=== PATIENT | male | born 1955 | race Caucasian/White ===

== ENCOUNTER 2023-07-10 08:27 | Outpatient (OUT) | payer MEDICARE, SELFPAY ==
[2023-07-10 08:58] LABS: Hemoglobin 17.2 g/dL (14.0-18.0)
--- NOTE | 2023-07-10 09:57 | RT_ITS ---
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 Findings were considered accurate and reproducible. Both pre- and post-bronchodilator values utilized for spirometry. Spirometry (based on pre-bronchodilator values): -FEV1/FVC: Reduced @ 67% -FEV1: Moderately reduced @ 79% -FVC: Normal @ 87% -There is no significant bronchodilator response. Lung volumes by plethysmography (based on post-bronchodilator values): -RV: Increased @ 133% -TLC: Mild-moderately reduced @ 70% Diffusion capacity: -DLCO: Very severe reduction @ 25% when corrected for Hb 17.2g/dL Flow-volume loop: -Moderate obstructive pattern Impressions: -Moderate obstructive pattern on spirometry without a bronchodilator response would be consistent with COPD/emphysema. Concomitant restrictive process with mild-moderate reduction in TLC and a very severe reduction in DLCO which can be seen in, but not restricted to, interstitial lung disease and cardiopulmonary vascular disorders. Secondary polycythemia is suggested given Hb 17.2g/dL. Clinical correlation required. Electronically Signed On 07-11-2023 15:38:42 EST by Puma Pratt
[2023-07-10] MEDS: ALBUTEROL SULFATE 2.5 MG/3 ML VIAL NEB IH (09:59)
--- NOTE | 2023-07-10 10:40 | XR_ITS ---
The [address] [address] Patient Name: JANINE MOORE MRN: [id number] date: 1955 Sex: M Assigned Patient Location: CARD Current Patient Location: CARD Accession/Order Number: [id number] Exam Date: 07/10/2023 10:45 Report Date: 07/10/2023 11:54 At the request of: ASHOK DELGADILLO Procedure: XR chest 2V EXAM: XR chest 2V HISTORY: Panlobular Emphysema J43.1 COMPARISON: None. TECHNIQUE: Upright PA and lateral chest x-ray FINDINGS: Diffuse interstitial changes or infiltrates are seen throughout the lungs, most prominently seen at the lung bases and in the right midlung. Some of these findings may be chronic in nature and related to fibrosis, there is flattening of the hemidiaphragms indicating COPD. No effusion or pneumothorax is identified. The heart is not enlarged and the vasculature is not distended. The osseous structures are grossly intact. XR/XR chest 2V IMPRESSION: Diffuse interstitial changes or infiltrates are seen throughout the lungs. Some of these findings may be chronic in nature and comparison with a previous study may be helpful. There is no evidence of an effusion, pneumothorax or overt cardiac decompensation at this time. Electronically authenticated by: VICKI CERDA Date: 07/10/2023 11:54
== END 2023-07-10 08:28 | disposition home or self-care (01) ==
LOC: CARD 08:33
PROVIDERS: PCP Internal Medicine; Visit Provider Internal Medicine
DX: R06.09 Other forms of dyspnea (principal); J43.1 Panlobular emphysema
CPT/HCPCS: 36415; 71046; 85018; 94060; 94726; 94729

== ENCOUNTER 2023-09-04 02:40 | Emergency (ER) | payer MEDICARE, SELFPAY ==
[2023-09-04] VITALS (40 sets, daily range): BP systolic 99–126; BP diastolic 68–90; PULSE 68–104; TEMP 36.6; O2SAT 40–95; BMI 25.1
--- OUTSIDE RECORDS SUMMARY | 2023-09-04 03:06 | XMS_ITS | CCD ---
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 Name Role Phone Unavailable Primary Care Provider Unavailcece e LYLE CAVAZOS Attending LYLE Falk Attending CR Falk Primary Care Provider CR Cavazos Attending Provider Lyle Cavazos Attending Lyle Falk Primary Care Unavailable Lyle Cavazos Admitting Unavailable Medications Current Medications Medication Drug Class(es) Dates Sig (Normalized) Sig (Original) 120 actuat budesonide 0.16 mg/actuat / formoterol fumarate 0.0048 mg/actuat / glycopyrrolate 0.009 mg/actuat metered dose inhaler (2 sources) Corticosteroid, beta2-Adrenergic Agonist Start: 07-05-2023 End: 07-04-2024 take 2 puff(s) by inhalation in the morning Budeson-Glycopyrr ol-Formoterol ([employer]) 160-9-4.8 MCG/ACT aerosol Indications: Panlobular emphysema (CMS/HCC) Inhale 2 puffs in the morning and 2 puffs before bedtime. 10.7 g 11 07/05/2023 07/04/2024 Active Problems Problem Classification Problem Date Documented Da te Episodic/Chronic Chronic obstructive pulmonary disease and bronchiectasis (3 sources) Panacinar emphysema; Translations: [Panlobular emphysema] Onset: 08-11-2023 07-05-2023 Chronic Other lower respiratory disease (2 sources) Dyspnea on exertion; Translations: [Other forms of dyspnea] 07-05-2023 Episodic Results Test Name Value Interpretation Reference Range Facility CT chest w conon 08-11-2023 CT chest w [facility] [address] [address] [address] Scan Report Signed Patient: Jim Bahena MR#: [id number] : 1955 Acct:[id number] Age/Sex: 68 / M ADM Date: 08/11/23 Loc: CT Room: Type: [facility] Attending Dr: Lyle Cavazos II, MD Copies to: Lyle Cavazos II, MD Ordering Provider: Lyle Cavazos II, MD Date of Service: 08/11/23 CT/CT chest w con: R94.2, J43.[address] Chest with contrast TECHNIQUE: Axial imaging with 2-D reconstruction. 86 cc of Isovue-300The CT exam was performed using one or more the following dose reduction techniques: Automated exposure control, adjustment of the MA and/or Kv according to patient size, or use of the iterative reconstruction technique. History: Difficulty breathing. COMPARISON: None THYROID: Unremarkable TRACHEA AND BRONCHI: Patent ESOPHAGUS: Unremarkable. HEART: Within normal limits PERICARDIAL EFFUSION: None CORONARY ARTERY CALCIFICATION: None MEDIASTINUM: No adenopathy. No pneumoperitoneum. No mediastinal hematoma. PULMONARY LUZ MARIA: No hilar mass or adenopathy is seen. THORACIC AORTA Unremarkable LUNG NODULE None LUNGS: Marked emphysematous and fibrotic changes. Honeycombing in the subpleural regions of the lung bases and also in the LEFT upper lobe and medial anterior portion of the RIGHT upper lobe abutting the minor fissure.. No acute findings. PLEURAL EFFUSION: None PNEUMOTHORAX: No pneumothorax seen. CHEST WALL: No abnormality AXILLA:Unremarkable BONY STRUCTURES Intact UPPER ABDOMEN: Mild prominence of the adrenal glands. CT/CT chest w con IMPRESSION: Pulmonary fibrosis and emphysematous changes. No acute cardiopulmonary disease. Impression dictated by: Michele Lucero M.D.08/11/2023 1:12 PM Dictation Location: [place] [address] Transcribed By: [facility] 08/11/23 1312 Dictated By: Michele Lucero DO 08/11/23 1304 Signed By: 08/11/23 1312 [facility] Creatinine (Bld) [Mass/Vol]O rdered By: Lyle Cavazos on 08-11-2023 Creatinine [Mass/Vol] 1.6 mg/dL 0.6-1.[address] [facility] Comment on above: ER/ESD physician is notified/shown all ISTAT results.Critical values may be confirmed by laboratory testing ifdeemed necessary by ER attending doctor. ISTAT XRay CREon 08-11-2023 Creatinine [Mass/Vol] 1.6 mg/dL High 0.6-1.[address] [facility] Comment on above: Result Comment: ER/E SD physician is notified/shown all ISTAT results. Critical values may be confirmed by laboratory testing if deemed necessary by ER attending doctor. Performed By: #### I SCRE #### [facility] [address] ISTAT GFR 47.225 Normal [facility] Comment on above: Result Comment: PERF ORMED BY: [place] [address] PATHOLOGIST RADIOSONDE OPERATOR ALEX OLIVER M.D. Performed By: #### I SCRE #### [facility] [address] [place] [address] No Panel InformationOrdered By: Lyle Cavazos on 08-11-2023 Bedside Estimated GFR (eGFR) 47.225 [facility] Vital Signs Date Time Vital Sign Value Performing Clinician Faci lity 07-05-2023 14:26-0500 Body height 170.2 cm Lyle Cavazos MD Work Phone: [facility] 07-05-2023 14:26-0500 Body mass index (BMI) [Ratio] 24.43 kg/m2 Lyle Cavazos MD Work Phone: [facility] 07-05-2023 14:26-0500 Body weight 70.76 kg Lyle Cavazos MD Work Phone: [facility] 07-05-2023 14:26-0500 Diastolic blood pressure 80 mm[Hg] Lyle Cavazos MD Work Phone: [facility] 07-05-2023 14:26-0500 Heart rate 62 /min Lyle Cavazos MD Work Phone: [facility] 07-05-2023 14:26-0500 SaO2% (BldA) [Mass fraction] 99 % Lyle Cavazos MD Work Phone: [facility] 07-05-2023 14:26-0500 Systolic blood pressure 134 mm[Hg] Lyle Cavazos MD Work Phone: [facility] Encounters Encounter Date Encounter Type Care Provider Facility Start: 08-11-2023 End: 08-11-2023 ambulatory Lyle Cavazos Facility:[facility] Start: 08-11-2023 End: 08-11-2023 ambulatory II Lyle Dirk Work Phone: [facility] Work Phone: Start: 08-11-2023 End: 08-11-2023 Patient encounter procedure II Lyle Dirk Work Phone: [facility] [place] Work Phone: Start: 08-04-2023 End: 08-04-2023 ambulatory LYLE CAVAZOS Not Available Start: 07-05-2023 End: 07-05-2023 ambulatory LYLE CAVAZOS Not Available Start: 07-05-2023 End: 07-05-2023 Office outpatient new 30 minutes Lyle Cavazos MD Work Phone: [facility] Comment on above: MYLES (dyspnea on exer tion) (Primary Dx); Panlobular emphysema (CMS/HCC) Start: 07-05-2023 Bamboo flowsheet Lyle benavides MD Work Phone: [facility] Start: 07-05-2023 Bamboo flowsheet Lyle benavides MD Work Phone: [facility] Procedures Date Procedure Procedure Detail Performing Clinician Start: 08-11-2023 CT of thorax with contrast II Lyle Cavazos Work Phone: Plan of Treatment Date Care Activity Detail Author Start: 08-04-2023 End: 08-04-2023 Patient encounter procedure 08/04/2023 10:00 AM EDT Office Visit [facility] [address] [place] [id number] Lyle Cavazos MD [address] [place], [place] [id number] [facility] Start: 07-05-2023 End: 07-05-2023 Patient encounter procedure 07/05/2023 2:30 PM EST Office Visit [facility] [address] [facility] [address] [place] [id number] Lyle Cavazos MD [address] [facility] [address] [place] [address] Arrived [facility] Comment on above: Arrived Start: 07-05-2023 End: 07-05-2024 Pulmonary function testing Pulmonary function testing Imaging Routine MYLES (dyspnea on exertion) Panlobular emphysema (CMS/HCC) Expected: 07/05/2023 (Approximate), Expires: 07/05/2024 [facility] Comment on above: Expected: 07/05/2023 (Approximate), Expires: 07/05/2024 Start: 07-05-2023 End: 07-05-2024 XR Chest 2 Views XR chest 2 views Imaging Routine Panlobular emphysema (CMS/HCC) Expected: 07/05/2023, Expires: 07/05/2024 [facility] Work Phone: Comment on above: Expected: 07/05/2023 , Expires: 07/05/2024 Payers Date Payer Category Payer Self-pay 2023 Private Health Insurance [employer] [id number] 2023-Present [address] [address] [place] [address] Supplement [id number] 2023 Private Health Insurance ACC [id number] 2022 Medicare MEDICARE MEDICAR E PART B [id number] 2022-[place] [address] [place] [address] Medicare [id number] 2022 Medicare [id number] 1955 Unknown [id number] 1955 Unknown [id number] Unknown [id number] Social History Date Type Detail Facility Tobacco smoking status IDIS Tobacco smoking consumption unknown [facility] Start: 1955 Sex Assigned At Not on file [facility] Start: 07-05-2023 Gender identity Not on file [facility] Start: 07-05-2023 Tobacco smoking status IDIS Smokes tobacco daily [facility] History of tobacco use Cigarette Smoker [facility] Start: 07-05-2023 Tobacco use and exposure Smokeless tobacco non-user [facility] Start: 07-05-2023 History of Social function [facility] Start: 1955 Sex Assigned At Male F [facility] History of Present illness Narrative 07-05-2023 Lyle Cavazos MD - 07/05/2023 2:30 PM EST Note Date & Type Note Facility 07-05-2023 History of Presen t illness Narrative Subjective Patient ID: Jim Bahena is a 67 y.o. male who presents for Establish Care (Pt has not had a PCP > 10 years) and Shortness of Breath. Subjective Jim Bahena is a 67 y.o. male who presents for evaluation of shortness of breath. Dyspnea has been mild, Episodes have been stable. Associated symptoms include: light-headed/dizzy. The symptoms are aggravated by exercise and exertion, and relieved by rest. Shortness of Breath Associated symptoms include wheezing. Pertinent negatives include no chest pain, fever or leg swelling. No current outpatient medications on file prior to visit. No current facility-administered medications on file prior to visit. No Known Allergies Social History Tobacco Use Smoking status: Every Day Types: Cigarettes Smokeless tobacco: Never Family History Problem Relation Name Age of Onset Heart disease Mother Cancer Mother History reviewed. No pertinent past medical history. Past Surgical History: Procedure Laterality Date APPENDECTOMY TONSILLECTOMY UMBILICAL HERNIA REPAIR Visit Vitals BP 134/80 Pulse 62 Ht 5' 7 Wt 156 lb SpO2 99% BMI 24.43 kg/m Smoking Status Every Day BSA 1.83 m Review of Systems Constitutional: Positive for fatigue. Negative for fever. Respiratory: Positive for shortness of breath and wheezing. Negative for cough and chest tightness. Cardiovascular: Negative for chest pain, palpitations and leg swelling. Objective Physical Exam Constitutional: General: He is not in acute distress. Appearance: He is normal weight. He is not ill-appearing. HENT: Head: Normocephalic. Cardiovascular: Rate and Rhythm: Normal rate and regular rhythm. Heart sounds: Normal heart sounds. No murmur heard. Pulmonary: Effort: Pulmonary effort is normal. Prolonged expiration present. Breath sounds: Decreased air movement present. Examination of the right-upper field reveals decreased breath sounds. Examination of the left-upper field reveals decreased breath sounds. Examination of the right-middle field reveals wheezing. Examination of the left-middle field reveals wheezing. Decreased breath sounds and wheezing present. Musculoskeletal: General: No swelling. Right lower leg: No edema. Left lower leg: No edema. Neurological: Mental Status: He is alert. Psychiatric: Mood and Affect: Mood normal. Assessment/Plan Diagnoses and all orders for this visit: MYLES (dyspnea on exertion) - Pulmonary function testing; Future Panlobular emphysema (CMS/HCC) - XR chest 2 views; Future - Pulmonary function testing; Future - Eyyodpt-Tblxsrletmf-Uphvuhdmpx ([employer]) 160-9-4.8 MCG/ACT aerosol; Inhale 2 puffs in the morning and 2 puffs before bedtime. Follow up in about 3 weeks (around 07/26/2023) for F/U med changes, Test/Lab Review. documented in this encounter [facility] Evaluation note Note Date & Type Note Facility Evaluation note Diagnosis MYLES (dyspnea on exertion)- Primary Other dyspnea and respiratory abnormality Panlobular emphysema (CMS/HCC) Other emphysema documented in this encounter [facility] Evaluation note Note Date & Type Note Facility Evaluation note No assessment information availa [facility] Work Phone: Summary Purpose Family History No Family History Records FoundNo Family History Records Found Advance Directives No Advanced Directives Records Found Advance Directive Response Recorded Date/ Time Advance Directives No August 07, 2 024 5:19pm Chief Complaint and Reason for Visit Chief Complaint j43.1 r94.2 r93.89 Additional Source Comments Reason for Visit (unrecogniz ed section and content) Reason Comments Establish Care Pt has not had a PCP > 10 years Shortness of Breath (unrecognized sect ion and content) No Status Records FoundNo Status Records Found INFORMATION SOURCE (unrecogn ized section and content) DATE CREATED AUTHOR 08/05/2023 [facility] EPIC DATE CREATED AUTHOR AUTHOR'S ORGANIZ ATION 08/16/2023 [facility] Care Teams (unrecognized sec tion and content) Team Status: Active Member Role Status Dates Lyle Cavazos II MD Primary Care Provider Active Team Status: Inactive Member Role Status Dates Lyle Cavazos II MD Primary Care Provid er, Attending Provider Active Start: August 11, 2023 End: August 11, 2023 Goals (unrecognized section and content) Goals may be documented in a n alternate section FOR RECORDS PERTAINING TO PATIENTS WHO ARE OR HAVE BEEN ENROLLED IN A CHEMICAL DEPENDENCY/SUBSTANCEABUSE PROGRAM, SOME INFORMATION MAY BE OMITTED. This clinical summary was aggregated from multiple sources. Caution should be exercised in using it in the provision of clinical care. This summary normalizes information from multiple sources, and as a consequence, information in this document may materially change the coding, format and clinical context of patient data. In addition, data may be omitted in some cases. CLINICAL DECISIONS SHOULD BE BASED ON THE PRIMARY CLINICAL RECORDS. [employer] provides no warranty or guarantee of the accuracy or completeness of information in this document.
--- NOTE | 2023-09-04 03:15 | XR_ITS ---
The [address] [address] Patient Name: JANINE MOORE MRN: [id number] date: 1955 Sex: M Assigned Patient Location: ER Current Patient Location: ED.MAIN Accession/Order Number: [id number] Exam Date: 09/04/2023 03:35 Report Date: 09/04/2023 06:50 At the request of: CARISSA BURRIS Procedure: XR chest 1V EXAM: XR chest 1V HISTORY: SOB COMPARISON: Chest radiographs dated 07/10/2023. Correlation is made with subsequent CT chest examination of the same date. TECHNIQUE: One view of the chest was obtained. FINDINGS: The cardiac silhouette is stable in size. There are emphysematous changes. Chronic interstitial lung changes are most pronounced in the lung bases. There is no significant pneumothorax or pleural effusion. No acute osseous abnormality is seen. XR/XR chest 1V IMPRESSION: 1. Emphysematous and chronic interstitial changes with no acute cardiopulmonary abnormality seen. Electronically authenticated by: Sarina BARBOZA Date: 09/04/2023 06:50
--- NOTE | 2023-09-04 03:17 | ED.GENADUL1 ---
HPI HPI - General Adult General Chief complaint: Syncope Stated complaint: NEAR SYNCOPE Time Seen by Provider: 09/04/23 02:45 Source: patient Mode of arrival: ambulance Limitations: no limitations History of Present Illness HPI narrative: This 68-year-old male who has been smoking cigarettes since he was a child presents for evaluation after he became became dizzy and nearly passed out at work. The patient works at [employer]. 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 The patient works at [address] and he started feeling his vision change then started feeling dizzy and then started feeling like he was going to pass out. He alerted one of his coworkers who called the lead at work and he was made to sit down and EMS was called. He states he did not fully pass out but according to his coworkers he was pale,arias in color and diaphoretic.and diaphoretic. After EMS arrival, he started feeling better and at the time of presentation, he is feeling normal and back to his baseline. He denies any chest pain, does not feel short of breath and has no abdominal pain, nausea or back pain. He did not fall or get injured when he became ill at work. He recently had PFTs done by Dr Pratt but states that he doesnt typically see doctors. He started feeling some upper resp symptoms earlier this evening as well with nasal congestion and phlegm in his throat. Related Data Home Medications ?Medication ?Instructions ?Recorded ?Confirmed No Known Home Medications 09/04/23 09/04/23 Allergies Allergy/AdvReac Type Severity Reaction Status Date / Time No Known Drug Allergies Allergy Verified 09/04/23 02:55 Opioid HPI Opioid Management Most Recent Opioid Data: No Data to Display Review of Systems ROS Status of ROS 10 or more systems reviewed and unremarkable except as noted in history and below Exam Narrative Exam Narrative: Nurses note and vital signs reviewed and patient is not hypoxic. General: The patient appears well and in no apparent distress. Patient is resting comfortably on cart. He is having episodes of sneezing and nasal congestion. Skin: Warm, dry, no pallor noted. There is no rash noted. Head: Normocephalic, atraumatic Eye: Normal conjunctiva, no drainage, EOMI. PERRL. Vision is grossly intact Ears, Nose, Mouth, and Throat: oral mucosa is moist. Nares patent. Nasal congestion. No swelling of the tongue, uvula or pharyngeal soft tissues Cardiovascular: Regular Rate and Rhythm S1S2, pulses are brisk and equal bilaterally, no murmurs, rubs or gallops appreciated Respiratory: Patient is in no distress, no accessory muscle use, lungs are clear to auscultation, no wheezing, rales or rhonchi Back: non-tender, no CVA tenderness bilaterally to percussion. GI: Normal bowel sounds, no tenderness to palpation, no masses appreciated. No rebound, guarding, or rigidity noted. Musculoskeletal: The patient has no evidence of calf tenderness, no pitting edema, symmetrical pulses noted bilaterally Neurological: A&O x4, normal speech, no focal deficits Psychiatric: Cooperative Constitutional Vital Signs, click to edit/add: Last Vital Signs Temp 98 F 09/04/23 02:42 Pulse 87 09/04/23 08:20 Resp 22 H 09/04/23 08:20 BP 126/83 09/04/23 07:30 Pulse Ox 83 L 09/04/23 02:50 O2 Del Method Room Air 09/04/23 02:42 Course Vital Signs Vital signs: Vital Signs Temperature 98 F 09/04/23 02:42 Pulse Rate 92 H 09/04/23 02:42 Respiratory Rate 20 09/04/23 02:42 Blood Pressure 109/71 09/04/23 02:42 Pulse Oximetry 95 09/04/23 02:42 Oxygen Delivery Method Room Air 09/04/23 02:42 Temperature 98 F 09/04/23 02:42 Pulse Rate 87 09/04/23 08:20 Respiratory Rate 22 H 09/04/23 08:20 Blood Pressure 126/83 09/04/23 07:30 Pulse Oximetry 83 L 09/04/23 02:50 Oxygen Delivery Method Room Air 09/04/23 02:42 Medical Decision Making MDM Narrative Medical decision making narrative: This 68-year-old male is brought to the emergency department from work after he had a near syncopal event in which he became lightheaded, short of breath, pale , arias and diaphoretic. He was made to sit down and EMS was called. The patient is a heavy smoker. . He does not typically follow up with a family physician several he does not know if he has any longstanding medical problems. He did recently have pulmonary function test done. He was evaluated immediately upon arrival and an EKG was performed that is a sinus rhythm with sinus rhythm with flipped T waves and nonspecific changes. No prior EKGs were available for comparison. An IV was placed and he was given IV fluids and 324 mg baby aspirin. Upon arrival he had no complaints whatsoever. He denied any chest pain throughout this entire time. He has a normal white count and hemoglobin. Electrolytes are normal although he does have a mildly elevated creatinine at 1.54. D dimer is elevated and Troponin is elevated at 123. Respiratory panel is negative. This was ordered because he started having URI symptoms of nasal congestion, feeling phlegmy in his throat and sneezing. Pt was continually monitored without any arrythmias noted on the monitor. Repeat EKG was ordered and is essentially unchanged. CTA of the chest is pending Repeat troponin is now 422.4. He still remains chest pain free. He was given a 4000unit heparin bolus and started on a heparin drip. CTA of the chest was negative for PE Case was discussed with Dr Torres at [facility] and he is accepted for transfer. Medical Records Medical records reviewed: Yes I reviewed the patient's medical records Medical records narrative: [place] [address] CT Scan Report Signed Patient: JANINE MOORE MR#: [id number] : 1955 Acct:[id number] Age/Sex: 68 / M ADM Date: 09/04/23 Loc: ER Attending Dr: Ordering Physician: Sola Choudhury Date of Service: 09/04/23 Procedure(s): CT angio chest Accession Number(s): [id number] cc: ASHOK DELGADILLO ~ The [place] [id number] Patient Name: JANINE MOORE MRN: [id number] date: 1955 Sex: M Assigned Patient Location: ER Current Patient Location: ER Accession/Order Number: [id number] Exam Date: 09/04/2023 04:34 Report Date: 09/04/2023 07:18 At the request of: SOLA CHOUDHURY Procedure: CT angio chest EXAM: CT angio chest HISTORY: R/o PE shortness of breath. COMPARISON: None. TECHNIQUE: Following intravenous administration of 100 cc of Omnipaque 50, axial soft tissue windows of the chest were performed with coronal and sagittal reformats. 3-D MIPS reconstructions were created and reviewed. CT dose reduction technique was used including Automated Exposure Control. Findings: The heart is not significantly enlarged. There are coronary artery and aortic annular and valvular calcifications. No pericardial effusion. The thoracic aorta is normal caliber. Mild atherosclerotic disease. There is adequate opacification of the pulmonary arteries. No evidence of pulmonary embolism. The central airways are patent. Severe emphysema. There is also septal thickening with bilateral honeycombing likely relating to interstitial lung disease. No pneumothorax. No pleural effusion. No focal consolidation. No enlarged mediastinal, hilar, axillary or supraclavicular lymph nodes. No aggressive's carotic or lytic osseous lesions. Mild multilevel degenerative thoracic spondylosis. CT/CT angio chest IMPRESSION: 1. No pulmonary embolism. 2. Severe emphysema. 3. Bilateral septal thickening with honeycombing likely relating interstitial lung disease such as usual interstitial pneumonitis. Electronically authenticated by: GLORIA CHIANG Date: 09/04/2023 07:18 Lab Data Lab results reviewed: Yes I reviewed the patient's lab results Labs: Lab Results 09/04/23 09/04/23 Range/Units 03:27 05:32 WBC 11.7 H (4.0-11.0) 10^3/uL RBC 4.41 L (4.70-6.10) 10^6/uL Hgb 15.6 (14.0-18.0) g/dL Hct 47.7 (42.0-54.0) % MCV 108.2 H (80.0-94.0) fL MCH 35.4 H (25.9-34.0) pg MCHC 32.7 (29.9-35.2) g/dL RDW 12.8 (11.0-15.0) % Plt Count 153 (150-450) 10^3/uL MPV 8.8 L (9.5-13.5) fL Neut % (Auto) 84.2 H (43.0-75.0) % Lymph % (Auto) 8.7 L (20.5-60.0) % Blaine % (Auto) 5.9 (1.7-12.0) % Eos % (Auto) 0.3 L (0.9-7.0) % Baso % (Auto) 0.3 (0.2-2.0) % Neut # (Auto) 9.9 H (1.4-6.5) 10^3/uL Lymph # (Auto) 1.0 L (1.2-3.8) 10^3/uL [place]aine # (Auto) 0.7 (0.3-0.8) 10^3/uL Eos # (Auto) 0.0 (0.0-0.7) 10^3/uL Baso # (Auto) 0.0 (0.0-0.1) 10^3/uL Abs Immat Gran (auto) 0.07 H (0.00-0.03) 10^3/uL Imm/Tot Granulo (auto) 0.6 H (0.0-0.5) % PTT (Heparin Absorb) 25.5 L* (48.2-68.6) sec D-Dimer 1.12 H* (<=0.59) mg/L FEU Sodium 140 (136-145) mmol/L Potassium 4.5 (3.5-5.1) mmol/L Chloride 106 (98-107) mmol/L Carbon Dioxide 26.2 (21.0-32.0) mmol/L Anion Gap 12.3 BUN 28.0 H (7.0-18.0) mg/dL Creatinine 1.54 H (0.70-1.30) mg/dL Est GFR ( Amer) 55 L (>=60) Est GFR (Non-Af Amer) 45 L (>=60) BUN/Creatinine Ratio 18.2 Glucose 130 H (74-106) mg/dL Calcium 8.5 (8.5-10.1) mg/dL Total Bilirubin 0.7 (0.2-1.0) mg/dL AST 21 (15-37) U/L ALT 16 (16-63) U/L Alkaline Phosphatase 57 (46-116) U/L Troponin I High Sens 123.8 H* 422.4 H* (4.0-76.1) pg/mL NT-Pro-B Natriuret Pep 8444.0 H* (<=900.0) pg/mL Total Protein 6.4 (6.4-8.2) g/dL Albumin 3.3 L (3.4-5.0) g/dL Globulin 3.1 g/dL Albumin/Globulin Ratio 1.1 Adenovirus (PCR) Not detected (NOT DETECTE) C. pneumoniae DNA (PCR) Not detected (NOT DETECTE) Coronavirus Type OC43 Not detected (NOT DETECTE) Coronavirus Type HKU1 Not detected (NOT DETECTE) Coronavirus Type 229E Not detected (NOT DETECTE) Coronavirus Type NL63 Not detected (NOT DETECTE) Human Metapneumovir PCR Not detected (NOT DETECTE) M. pneumoniae (PCR) Not detected (NOT DETECTE) Parainfluenza PCR Not detected (NOT DETECTE) Parainfluenza 2 (PCR) Not detected (NOT DETECTE) Parainfluenza 3 (PCR) Not detected (NOT DETECTE) Parainfluenza 4 (PCR) Not detected (NOT DETECTE) RSV (RT-PCR) Not detected (NOT DETECTE) Entero/Rhino (PCR) Not detected (NOT DETECTE) SARS-CoV-2 (PCR) Not detected (NOT DETECTE) Bordetella pertussis (PCR) Not detected (NOT DETECTE) B parapertussis DNA PCR Not detected (NOT DETECTE) Influenza Type A (PCR) Not detected (NOT DETECTE) Influenza Type B (PCR) Not detected (NOT DETECTE) ECG Data Attestation: I personally reviewed and interpreted this ECG as follows: (Sinus rhythm at 94 bpm, normal axis, inverted T waves are noted in leads 238 inverted T waves are noted in leads 23 F V4 and V5,, possible right ventricular hypertrophy possible right ventricular hypertrophy, moderate ST depressions in leads II and aVF, no acute ST segment elevation moderate ST dep) Prior ECG tracings: not available for review Critical Care Time Critical Care Time Critical Care Time: Yes Total Critical Care Time: 40 Attestation: . Discharge Plan Discharge Chief Complaint: Syncope Clinical Impression: Non-ST elevation UT (NSTEMI), Near syncope Patient Disposition: [facility] Time of Disposition Decision: 06:20 Discharge Location: [facility] Condition: Serious Discharge Date/Time: 09/04/23 08:40
[2023-09-04 03:33] LABS: Adenovirus NOT DETECTED (NOT DETECTE); Bordetella parapertussis NOT DETECTED (NOT DETECTE); Coronavirus 229E NOT DETECTED (NOT DETECTE); Coronavirus HKU1 NOT DETECTED (NOT DETECTE); Coronavirus NL63 NOT DETECTED (NOT DETECTE); Coronavirus OC43 NOT DETECTED (NOT DETECTE); Human Metapneumovirus NOT DETECTED (NOT DETECTE); Human Rhinovirus/Enterovirus NOT DETECTED (NOT DETECTE); Influenza A NOT DETECTED (NOT DETECTE); Influenza B NOT DETECTED (NOT DETECTE); Mycoplasma pneumoniae NOT DETECTED (NOT DETECTE); Parainfluenza Virus 1 NOT DETECTED (NOT DETECTE); Parainfluenza Virus 2 NOT DETECTED (NOT DETECTE); Parainfluenza Virus 3 NOT DETECTED (NOT DETECTE); Parainfluenza Virus 4 NOT DETECTED (NOT DETECTE); Respiratory Syncytial Virus NOT DETECTED (NOT DETECTE); SARS-CoV-2 NOT DETECTED (NOT DETECTE)
[2023-09-04 03:36] LABS: Basophils Percent Auto 0.3 % (0.2-2.0); Eosinophils Percent Auto 0.3 % (0.9-7.0); Hematocrit 47.7 % (42.0-54.0); Hemoglobin 15.6 g/dL (14.0-18.0); Immature Granulocytes Abs Auto 0.07 10^3/uL (0.00-0.03); Immature Granulocytes Pct Auto 0.6 % (0.0-0.5); Lymphocytes Percent Auto 8.7 % (20.5-60.0); Mean Corpuscular HGB Conc 32.7 g/dL (29.9-35.2); Mean Corpuscular Hemoglobin 35.4 pg (25.9-34.0); Mean Corpuscular Volume 108.2 fL (80.0-94.0); Mean Platelet Volume 8.8 fL (9.5-13.5); Monocytes Absolute Auto 0.7 10^3/uL (0.3-0.8); Monocytes Percent Auto 5.9 % (1.7-12.0); Neutrophils Absolute Auto 9.9 10^3/uL (1.4-6.5); Neutrophils Percent Auto 84.2 % (43.0-75.0); Platelet Count 153 10^3/uL (150-450); Red Blood Count 4.41 10^6/uL (4.70-6.10); Red Cell Distribution Width 12.8 % (11.0-15.0); White Blood Count 11.7 10^3/uL (4.0-11.0)
[2023-09-04] MEDS: ASPIRIN 81 MG TAB.CHEW 324 MG PO (03:36)
[2023-09-04 03:50] LABS: Alanine Aminotransferase 16 U/L (16-63); Albumin Globulin Ratio 1.1; Albumin Level 3.3 g/dL (3.4-5.0); Alkaline Phosphatase 57 U/L (46-116); Anion Gap 12.3; Aspartate Amino Transferase 21 U/L (15-37); BUN Creatinine Ratio 18.2; Bilirubin Total 0.7 mg/dL (0.2-1.0); Calcium 8.5 mg/dL (8.5-10.1); Carbon Dioxide 26.2 mmol/L (21.0-32.0); Chloride 106 mmol/L (98-107); Estimated GFR (African America 55 (>=60); Estimated GFR (Non-African Ame 45 (>=60); Globulin 3.1 g/dL; Glucose 130 mg/dL (74-106); Potassium 4.5 mmol/L (3.5-5.1); Sodium 140 mmol/L (136-145); Total Protein 6.4 g/dL (6.4-8.2)
[2023-09-04 03:59] LABS: D Dimer 1.12 mg/L FEU (<=0.59)
--- NOTE | 2023-09-04 04:01 | CT_ITS ---
The [address] [address] Patient Name: JANINE MOORE MRN: [id number] date: 1955 Sex: M Assigned Patient Location: ER Current Patient Location: Accession/Order Number: [id number] Exam Date: 09/04/2023 04:34 Report Date: 09/04/2023 07:18 At the request of: CARISSA BURRIS Procedure: CT angio chest EXAM: CT angio chest HISTORY: R/o PE shortness of breath. COMPARISON: None. TECHNIQUE: Following intravenous administration of 100 cc of Omnipaque 50, axial soft tissue windows of the chest were performed with coronal and sagittal reformats. 3-D MIPS reconstructions were created and reviewed. CT dose reduction technique was used including Automated Exposure Control. Findings: The heart is not significantly enlarged. There are coronary artery and aortic annular and valvular calcifications. No pericardial effusion. The thoracic aorta is normal caliber. Mild atherosclerotic disease. There is adequate opacification of the pulmonary arteries. No evidence of pulmonary embolism. The central airways are patent. Severe emphysema. There is also septal thickening with bilateral honeycombing likely relating to interstitial lung disease. No pneumothorax. No pleural effusion. No focal consolidation. No enlarged mediastinal, hilar, axillary or supraclavicular lymph nodes. No aggressive's carotic or lytic osseous lesions. Mild multilevel degenerative thoracic spondylosis. CT/CT angio chest IMPRESSION: 1. No pulmonary embolism. 2. Severe emphysema. 3. Bilateral septal thickening with honeycombing likely relating interstitial lung disease such as usual interstitial pneumonitis. Electronically authenticated by: GLORIA CHIANG Date: 09/04/2023 07:18
[2023-09-04 04:07] LABS: Troponin I High Sensitivity 123.8 pg/mL (4.0-76.1)
[2023-09-04 04:46] LABS: PTT Heparin Monitor 25.5 sec (48.2-68.6)
--- NOTE | 2023-09-04 05:12 | ECG_ITS ---
The [facility] Test Date: 2023-09-04 Pat Name: JANINE MOORE Department: Room: - Gender: Male Manager Biologics: : 1955 Requested By: [id number] Order Number: [id number] Reading MD: CHAPIS AMATO Measurements Intervals [place] Rate: 94 P: 73 IN: 166 QRS: 111 QRSD: 94 T: -63 QT: 344 QTc: 396 Interpretive Statements 1100 Sinus rhythm [address] ST/T wave changes, can't exluded inferolateral ischemia 5120 Possible right ventricular hypertrophy 9150 abnormal ECG No previous ECG available for comparison Electronically Signed On 09-04-2023 7:00:21 EDT by CHAPIS AMATO
--- NOTE | 2023-09-04 06:03 | ECG_ITS ---
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
[2023-09-04 06:14] LABS: Troponin I High Sensitivity 422.4 pg/mL (4.0-76.1)
[2023-09-04] MEDS: HEPARIN SODIUM,PORCINE/D5W 25,000 UNIT/500 ML IV.SOLN 17.4179999999999993 UNIT IV (06:56)
[2023-09-04] MEDS: HEPARIN SODIUM (PORCINE) 5,000 UNIT/ML VIAL 4000 UNIT IV (06:58)
== END 2023-09-04 08:40 | disposition short-term general hospital (02) ==
PROVIDERS: Emergency Provider Emergency Medicine; PCP Internal Medicine
DX: I21.4 Non-ST elevation (NSTEMI) myocardial infarction (principal); R55 Syncope and collapse; F17.210 Nicotine dependence, cigarettes, uncomplicated; Z20.822 Contact with and (suspected) exposure to COVID-19
CPT/HCPCS: 0202U; 36415; 71045; 71275; 80053; 83880; 84484; 85025; 85378; 85730; 93005; 96374; 99285; Q9967

== ENCOUNTER 2023-09-21 09:10 | Outpatient (OUT) | payer MEDICARE, SELFPAY ==
--- NOTE | 2023-09-21 09:23 | XR_ITS ---
The [address] [address] Patient Name: JANINE MOORE MRN: [id number] date: 1955 Sex: M Assigned Patient Location: [facility] Current Patient Location: RAD Accession/Order Number: [id number] Exam Date: 09/21/2023 09:25 Report Date: 09/21/2023 12:59 At the request of: ASHOK DELGADILLO Procedure: XR chest 2V EXAMINATION: XR chest 2V HISTORY: shortness of breath R06.02 COMPARISON: 07/10/2023 TECHNIQUE: PA and lateral FINDINGS: LUNGS: Increased interstitial lung markings most significant in the left lung base and right midlung, stable. No new focal parenchymal infiltrates VASCULATURE: No increased pulmonary vasculature. PLEURA: No pneumothorax, effusion, or pleural thickening. CARDIAC: No cardiomegaly or cardiac silhouette abnormality. MEDIASTINUM: No visible mass or adenopathy. BONES: No fracture or visible bone lesion. OTHER: Negative. XR/XR chest 2V IMPRESSION: Moderate stable interstitial lung disease Electronically authenticated by: CELIA MARSH Date: 09/21/2023 12:59
== END 2023-09-21 09:11 | disposition home or self-care (01) ==
LOC: RAD 09:18
PROVIDERS: PCP Internal Medicine; Visit Provider Internal Medicine
DX: R06.02 Shortness of breath (principal); J84.9 Interstitial pulmonary disease, unspecified
CPT/HCPCS: 71046

== ENCOUNTER 2023-12-28 07:18 | Outpatient (RCR) | payer MEDICARE, SELFPAY ==
--- NOTE | 2023-09-19 | CR1_ITS ---
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
--- NOTE | 2023-09-20 14:25 | CR1_ITS ---
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
--- NOTE | 2023-10-02 12:55 | PC.NURSE ---
Called to outreach patient today as he has not been seen in cardiac rehab since his inital visit where his SPO2 was low. Patient was to have a chest xray per his primary care. No answer on patients phone number and no voicemail set up. Called patients emergency contact Jaquan but no answer. Voicemail is full and unable to leave a message.
--- NOTE | 2023-10-17 15:11 | PC.NURSE ---
Called to outreach patient as he has not been seen. States he has continued to have breathing problems since his inital visit and wanted to wait until he sees pulmonology on 10/25. patient agrees he needs to get mobile and is willing to come in this week to CR to work out and try and get some strength back. Patient understands we will be doing vitals to monitor his safety while he is here and will stop him if his spo2 becomes too low. Patient also stated he is not allowed to return to work until he sees pulmonology. Patient scheduled for 10/19/23 at 9 am for CR
--- NOTE | 2023-10-18 15:43 | CR1_ITS ---
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
--- NOTE | 2023-11-17 07:26 | CR1_ITS ---
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
--- NOTE | 2023-11-21 15:58 | PC.NURSE ---
Patient had some increased dyspnea today. His SPO2 was slow to recover despite being on 4 LPM NC on the wall unit. He was 87% on 4LPM concentrator on arrival. Patient states he does not feel his work of breathing is more difficult in the way it was prior to being on oxygen, but states he does feel as though he is struggling more. Patient is concerned that it maybe something cardiac and not respiratory related since he isnt working as hard to breath . No accessory muscle use noted through out the visit. This RN called and spoke with Dr. Lombardo office nurse regarding the patients change in condition as patient has a visit tomorrow in their office. Patient was back at baseline, reported not increased shortness of breath following his rest, no chest pain reported and felt he was his normal . Patient was provided written report to give to provider in appointment tomorrow. Patient also instructed if he continues to have difficulty breathing to report to the ER.
--- NOTE | 2023-12-19 11:00 | CR1_ITS ---
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
--- NOTE | 2023-12-28 15:18 | PC.NURSE ---
called to outreach patient as he did not attend sessions this week. spoke with his galdino who informed us that the patient last evening unexpectedly. patient will be discharged.
--- NOTE | 2023-12-28 15:49 | CR1_ITS ---
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
== END 2024-01-26 10:55 ==
LOC: CR 07:18
PROVIDERS: PCP Internal Medicine; Visit Provider Internal Medicine Cardiovascular Disease
DX: I21.4 Non-ST elevation (NSTEMI) myocardial infarction (principal); Z98.61 Coronary angioplasty status
CPT/HCPCS: 93798